=== PATIENT | female | born 1970 | race Caucasian/White ===

== ENCOUNTER 2024-11-29 06:02 | Emergency (ER) | payer BC ==
[~2024-11-29] VITALS: Ht 152.4 cm; Wt 54.4 kg
[2024-11-29] MEDS ORDERED: PROMETRIUM200 MG PO (06:04)
[2024-11-29] MEDS ORDERED: WEGOVY0.25 MG/0. SQ (06:04)
[2024-11-29] MEDS ORDERED: LEXAPRO5 MG PO (06:04)
[2024-11-29 10:38] LABS: HEMATOCRIT 36.9 % (36.0-45.00); HEMOGLOBIN 12.5 g/dL (12.0-15.00); MEAN CELL VOLUME 84.9 fL (80.00-100.00); MEAN CORPUSCULAR HEMOGLOBIN 28.7 pg (27.00-32.0); MEAN CORPUSCULAR HGB CONC 33.8 g/dl (32.0-36.0); PLATELET COUNT 322 K/uL (150-450); RED BLOOD COUNT 4.35 M/uL (4.00-6.00); RED CELL DISTRIBUTION WIDTH 13.9 % (11.5-14.5)
[2024-11-29 11:39] LABS: PH,URINE 6.5 (5.0-8.0); URINE APPEARANCE Clear; URINE BILIRRUBIN Negative (NEGATIVE); URINE BLOOD Negative; URINE COLOR Dark Yellow; URINE GLUCOSE Negative (NEGATIVE); URINE KETONE Negative (NEGATIVE); URINE LEUKOCYTE Negative; URINE NITRATE Positive; URINE PROTEIN Negative (NEGATIVE)
[2024-11-29 11:47] LABS: URINE BACTERIA 1.2 uL (0.0-1933); URINE EPITHELIAL CELLS 1.3 uL (0.0-38.8); URINE WBC 0.4 uL (0.0-23.2)
[2024-11-29] MEDS ORDERED: CEFTRIAXONE SODIUM 1,000 MG VIAL IM ONE (12:15)
[2024-11-29] MEDS ORDERED: CEFTRIAXONE SODIUM 1,000 MG VIAL ONE (12:46)
== END 2024-11-29 12:57 ==
LOC: ER 06:04
PROVIDERS: General Practice
DX: N39.0 Urinary tract infection, site not specified (principal); R30.0 Dysuria; Z88.6 Allergy status to analgesic agent